=== PATIENT | male | born 1975 | race Caucasian/White ===

== ENCOUNTER 2017-01-18 11:16 | Emergency (ER) | payer OTHER, BC ==
[~2017-01-18] VITALS: Ht 200.7 cm; Wt 113.4 kg
[2017-01-18] MEDS ORDERED: FLEXERIL10 MG PO (13:21)
[2017-01-18 13:42] VITALS: BP 100/59
== END 2017-01-18 13:44 | disposition home or self-care (01) ==
LOC: EME 11:16
DX: S16.1XXA Strain of muscle, fascia and tendon at neck level, initial encounter (principal); S40.012A Contusion of left shoulder, initial encounter; V49.40XA Driver injured in collision with unspecified motor vehicles in traffic accident, initial encounter; Y92.410 Unspecified street and highway as the place of occurrence of the external cause; E11.9 Type 2 diabetes mellitus without complications; Z94.0 Kidney transplant status; Z88.5 Allergy status to narcotic agent; Z88.8 Allergy status to other drugs, medicaments and biological substances
CPT/HCPCS: 99281; 99285

== ENCOUNTER 2017-01-23 20:41 | Emergency (ER) | payer OTHER, BC ==
[~2017-01-23] VITALS: Ht 200.7 cm; Wt 113.8 kg
[~2017-01-23 20:41] MED LIST: FLEXERIL10 MG PO
[2017-01-23] MEDS ORDERED: ULTRACET1 TABLET PO (23:48)
[2017-01-23] MEDS ORDERED: VALIUM5 MG PO (23:48)
[2017-01-23] MEDS ORDERED: INDOCIN50 MG PO (23:48)
[2017-01-24] MEDS ORDERED: INDOCIN25 MG PO (00:06)
[2017-01-24 00:24] VITALS: BP 125/87
== END 2017-01-24 00:26 | disposition home or self-care (01) ==
LOC: EME 20:41
DX: S16.1XXA Strain of muscle, fascia and tendon at neck level, initial encounter (principal); M25.512 Pain in left shoulder; V99.XXXA Unspecified transport accident, initial encounter; Z88.5 Allergy status to narcotic agent; Z88.8 Allergy status to other drugs, medicaments and biological substances
CPT/HCPCS: 72040; 73030; 99281; 99284